=== PATIENT | female | born 1985 | race African-American/Black ===

== ENCOUNTER → 2016-06-01 | Outpatient (CLI) | payer OTHER ==
[~2016-06-01] MED LIST: CEPHALEXIN500 M1 PO; DIFLUCAN PO; DIFLUCAN150 MG PO; HUMALOG100 U/ML SC; INDERAL; INSULIN SYRING1 EA10 SQ; KLONOPIN 1MG1 MG PO; LANCETS MC; LEVEMIR100 U/ML SQ; METRONIDAZOLE500 MG PO; NOVOLIN 70/30 710 ML SQ; NOVOLOG FLEX100 U/ML SQ; PEPCID 20MG TAB20 MG PO; PERCOCET 325 MG1 TAB PO; RELION VEN0.09 MG/Ac IH; TESSALON P100 MG/CAP PO; TUSS PO; ZANTAC 150MG T150 MG PO; ZITHROMAX 250M250 MG PO; ZITHROMAX Z PA250 MG PO
== END ==
LOC: SUN.DIA 05-12 15:55
DX: E10.65 Type 1 diabetes mellitus with hyperglycemia (principal); Z79.4 Long term (current) use of insulin; Z68.31 Body mass index [BMI] 31.0-31.9, adult; Z71.3 Dietary counseling and surveillance; I10 Essential (primary) hypertension; E88.81 Metabolic syndrome and other insulin resistance
CPT/HCPCS: G0108

== ENCOUNTER 2016-10-11 09:11 | Inpatient (IN) | payer OTHER ==
[~2016-10-11] VITALS: Ht 160 cm; Wt 78.2 kg
[2016-10-11] VITALS (86 sets, daily range): BP systolic 104–128; BP diastolic 82–90; PULSE 88–97; TEMP 97.8–99.1; O2SAT 73–100
[~2016-10-11 09:11] MED LIST changes: -INSULIN SYRING1 EA10 SQ; -KLONOPIN 1MG1 MG PO; -LANCETS MC; -NOVOLIN 70/30 710 ML SQ; -PEPCID 20MG TAB20 MG PO; -PERCOCET 325 MG1 TAB PO; -ZANTAC 150MG T150 MG PO
[2016-10-11 09:55] LABS: BASO % 0.4 % (0.0-2.0); EOS # 0.1 (0.0-0.7); EOS % 0.7 % (0-4.0); GRAN # 4.3 (1.4-6.5); GRAN % 62.4 % (42.2-75.2); HEMATOCRIT 47.6 % (37.0-47.0); HEMOGLOBIN 15.8 g/dl (12.5-16.0); LYMPH % 28.8 % (20.0-51.0); MEAN CELL VOLUME 88 fl (80.0-100.0); MEAN CORPUSCULAR HEMOGLOBIN 29 pg (27.0-31.0); MEAN CORPUSCULAR HGB CONC 33 g/dl (33.0-37.0); MEAN PLATELET VOLUME 10.7 fl (7.4-10.4); MONO # 0.5 (0.1-0.6); MONO % 7.3 % (1.7-9.3); PLATELET COUNT 209 K/mm3 (130-400); REDCELL DISTRIBUTION WIDTH-CV 13.5 % (11.5-14.5); WHITE BLOOD COUNT 6.9 K/mm3 (4.8-10.8)
[2016-10-11] MEDS ORDERED: KLONOPIN 1MG1 MG PO (10:06)
[2016-10-11 10:07] LABS: ADJUSTED CALCIUM 9.4 mg/dL (8.4-10.2); ALANINE AMINOTRANSFERASE 20 U/L (9-52); ALBUMIN 3.9 gm/dL (3.5-5.0); ALKALINE PHOSPHATASE 86 U/L (50-136); ANION GAP 23 mmol/L (7-16); BILIRUBIN,TOTAL 0.8 mg/dL (0.0-1.0); BLOOD UREA NITROGEN 13 mg/dL (7-17); CALCIUM 9.3 mg/dL (8.4-10.2); CHLORIDE 98 mmol/L (98-107); CREATININE, serum 0.86 mg/dL (0.52-1.25); LIPASE 24 U/L (23-300); POTASSIUM 4.4 mmol/L (3.4-5.0); SODIUM 132 mmol/L (137-145); TOTAL PROTEIN 6.9 gm/dL (6.4-8.2)
[2016-10-11 10:16] LABS: CARBON DIOXIDE 11 mmol/L (22-30); GLUCOSE 466 mg/dL (74-106)
[2016-10-11 10:21] LABS: PH 5 (5-8); SQUAMOUS EPITHELIAL 0-2 /hpf; URINE APPEARANCE Clear; URINE BACTERIA None Seen /hpf; URINE BILIRUBIN Negative (NEGATIVE); URINE BLOOD 1+ (NEGATIVE); URINE COLOR Yellow; URINE GLUCOSE 3+ (NEGATIVE); URINE KETONE 2+ (NEGATIVE); URINE RBC 0-2 /hpf; URINE UROBILINOGEN Negative (NEGATIVE); URINE WBC 0-2 /hpf
[2016-10-11 18:32] LABS: CREATININE, serum 0.59 mg/dL (0.52-1.25); POTASSIUM 3.6 mmol/L (3.4-5.0)
[2016-10-11] MEDS ORDERED: PERCOCET 325 MG1 TAB PO (18:53)
[2016-10-11 22:00] LABS: THYROID STIMULATING HORMONE 2.25 uIU/mL (0.465-4.680)
[2016-10-11 22:07] LABS: CALCIUM 8.4 mg/dL (8.4-10.2); CREATININE, serum 0.82 mg/dL (0.52-1.25); POTASSIUM 3.4 mmol/L (3.4-5.0)
[2016-10-12] VITALS: BP 94/64; PULSE 85; TEMP 98.1
[2016-10-12 04:00] VITALS: PULSE 86; TEMP 97.8
[2016-10-12 06:39] LABS: BASO % 0.4 % (0.0-2.0); EOS # 0.1 (0.0-0.7); EOS % 1.6 % (0-4.0); GRAN # 2.2 (1.4-6.5); GRAN % 40.7 % (42.2-75.2); HEMATOCRIT 41.5 % (37.0-47.0); LYMPH # 2.7 (1.2-3.4); LYMPH % 49.1 % (20.0-51.0); MEAN CELL VOLUME 89 fl (80.0-100.0); MEAN CORPUSCULAR HEMOGLOBIN 29 pg (27.0-31.0); MEAN CORPUSCULAR HGB CONC 33 g/dl (33.0-37.0); MEAN PLATELET VOLUME 10.3 fl (7.4-10.4); MONO # 0.4 (0.1-0.6); PLATELET COUNT 167 K/mm3 (130-400); RED BLOOD COUNT 4.68 M/mm3 (4.10-5.30); REDCELL DISTRIBUTION WIDTH-CV 13.8 % (11.5-14.5); WHITE BLOOD COUNT 5.5 K/mm3 (4.8-10.8)
[2016-10-12 06:44] LABS: HEMOGLOBIN 13.6 g/dl (12.5-16.0)
[2016-10-12 06:49] LABS: CALCIUM 8.4 mg/dL (8.4-10.2); CREATININE, serum 0.73 mg/dL (0.52-1.25); POTASSIUM 3.6 mmol/L (3.4-5.0)
[2016-10-12 08:00] VITALS: BP 112/80; PULSE 81
[2016-10-12] MEDS ORDERED: ZANTAC 150MG T150 MG PO (11:54)
[2016-10-12] MEDS ORDERED: PEPCID 20MG TAB20 MG PO (11:55)
[2016-10-12] MEDS ORDERED: NOVOLIN 70/30 710 ML SQ (11:56)
[2016-10-12] MEDS ORDERED: LANCETS MC (11:57)
[2016-10-12] MEDS ORDERED: INSULIN SYRING1 EA10 SQ (12:04)
[2016-10-12 12:25] VITALS: BP 115/82; PULSE 79
== END 2016-10-12 16:53 | disposition home or self-care (01) | DRG 639 ==
LOC: COL.ER 09:11 → IMCU 10:26
PROVIDERS: Emergency Medicine; Family Medicine
DX: E10.10 Type 1 diabetes mellitus with ketoacidosis without coma (principal); E05.00 Thyrotoxicosis with diffuse goiter without thyrotoxic crisis or storm; R33.0 Drug induced retention of urine; T45.0X5A Adverse effect of antiallergic and antiemetic drugs, initial encounter; K21.9 Gastro-esophageal reflux disease without esophagitis; N92.0 Excessive and frequent menstruation with regular cycle; F41.9 Anxiety disorder, unspecified; F17.210 Nicotine dependence, cigarettes, uncomplicated
CPT/HCPCS: 99223-AI; 99239; C9113; J1170; J1200; J1815; J1885; J2270; J2405; J7030; J7040; J7070

== ENCOUNTER → 2017-07-26 | Outpatient (CLI) | payer OTHER ==
[~2017-07-26] MED LIST changes: +INSULIN SYRING1 EA10 SQ; +KLONOPIN 1MG1 MG PO; +LANCETS MC; +NOVOLIN 70/30 710 ML SQ; +PEPCID 20MG TAB20 MG PO; +PERCOCET 325 MG1 TAB PO; +ZANTAC 150MG T150 MG PO
== END ==
LOC: SUN.DIA 08-03 14:01
DX: E10.9 Type 1 diabetes mellitus without complications (principal); Z79.4 Long term (current) use of insulin; I10 Essential (primary) hypertension; Z68.26 Body mass index [BMI] 26.0-26.9, adult; Z71.3 Dietary counseling and surveillance; F17.210 Nicotine dependence, cigarettes, uncomplicated
CPT/HCPCS: G0108

== ENCOUNTER 2017-12-12 02:52 | Emergency (ER) | payer OTHER ==
[~2017-12-12] VITALS: Ht 160 cm; Wt 70.0 kg
[2017-12-12 02:57] VITALS: TEMP 98.7
[2017-12-12] MEDS ORDERED: ADDERALL20 MG PO (03:08)
[2017-12-12 04:08] LABS: BASO % 0.4 % (0.0-2.0); EOS % 0.5 % (0-4.0); GRAN # 5.4 (1.4-6.5); GRAN % 71.3 % (42.2-75.2); HEMOGLOBIN 11.2 g/dl (12.5-16.0); LYMPH # 1.2 (1.2-3.4); LYMPH % 15.7 % (20.0-51.0); MEAN CELL VOLUME 89 fl (80.0-100.0); MEAN CORPUSCULAR HEMOGLOBIN 29 pg (27.0-31.0); MEAN CORPUSCULAR HGB CONC 33 g/dl (33.0-37.0); MEAN PLATELET VOLUME 9.8 fl (7.4-10.4); MONO # 0.9 (0.1-0.6); MONO % 11.8 % (1.7-9.3); PLATELET COUNT 205 K/mm3 (130-400); RED BLOOD COUNT 3.81 M/mm3 (4.10-5.30)
[2017-12-12 04:10] LABS: HEMATOCRIT 33.8 % (37.0-47.0)
[2017-12-12 04:18] LABS: ALBUMIN 3.1 gm/dL (3.5-5.0); BILIRUBIN,TOTAL 0.1 mg/dL (0.0-1.0); CALCIUM 8.2 mg/dL (8.4-10.2); CREATININE, serum 0.47 mg/dL (0.52-1.25); TOTAL PROTEIN 5.8 gm/dL (6.4-8.2)
[2017-12-12 04:20] LABS: POTASSIUM 2.9 mmol/L (3.4-5.0)
[2017-12-12] MEDS ORDERED: ZITHROMAX Z PA250 MG PO (04:37)
[2017-12-12 05:16] LABS: TROPONIN-I < 0.012 ng/mL (0.000-0.034)
[2017-12-12 05:30] LABS: COLLECTION METHOD CLEAN CATCH
[2017-12-12 05:36] LABS: MUCOUS Present /lpf; PH 6 (5-8); SQUAMOUS EPITHELIAL 0-2 /hpf; URINE APPEARANCE Clear; URINE BACTERIA Rare /hpf; URINE BILIRUBIN Negative (NEGATIVE); URINE BLOOD Negative (NEGATIVE); URINE COLOR Straw; URINE GLUCOSE 3+ (NEGATIVE); URINE KETONE Negative (NEGATIVE); URINE LEUKOCYTE ESTERASE Negative (NEGATIVE); URINE NITRATE Negative (NEGATIVE); URINE PROTEIN(semi-quant) 1+ (NEGATIVE); URINE RBC 0-2 /hpf; URINE UROBILINOGEN Negative (NEGATIVE)
[2017-12-12] MEDS ORDERED: LASIX 20MG TABL20 MG PO (05:46)
[2017-12-12] MEDS ORDERED: NORCO 325 MG-51 TAB PO (05:52)
[2017-12-12 05:58] VITALS: BP 128/70; PULSE 96
== END 2017-12-12 05:59 | disposition home or self-care (01) ==
LOC: COL.ER 02:52
PROVIDERS: Emergency Medicine
DX: J18.1 Lobar pneumonia, unspecified organism (principal); E87.6 Hypokalemia; E05.00 Thyrotoxicosis with diffuse goiter without thyrotoxic crisis or storm; F17.210 Nicotine dependence, cigarettes, uncomplicated; E10.9 Type 1 diabetes mellitus without complications; Z79.4 Long term (current) use of insulin; Z98.51 Tubal ligation status; Z98.890 Other specified postprocedural states
CPT/HCPCS: J0696; J7030

== ENCOUNTER 2018-07-30 08:37 | Emergency (ER) | payer OTHER ==
[~2018-07-30] VITALS: Ht 160 cm; Wt 63.6 kg
[~2018-07-30 08:37] MED LIST changes: +ADDERALL20 MG PO; +LASIX 20MG TABL20 MG PO; +NORCO 325 MG-51 TAB PO
[2018-07-30 08:45] VITALS: TEMP 97.9
[2018-07-30] MEDS ORDERED: FLEXERIL 1010 MG/TAB PO (09:55)
[2018-07-30 10:07] VITALS: BP 124/84; PULSE 108
== END 2018-07-30 10:10 | disposition home or self-care (01) ==
LOC: COL.ER 08:37
DX: S09.90XA Unspecified injury of head, initial encounter (principal); S16.1XXA Strain of muscle, fascia and tendon at neck level, initial encounter; S00.93XA Contusion of unspecified part of head, initial encounter; E10.9 Type 1 diabetes mellitus without complications; F17.210 Nicotine dependence, cigarettes, uncomplicated; Z98.51 Tubal ligation status; Z98.890 Other specified postprocedural states; V49.9XXA Car occupant (driver) (passenger) injured in unspecified traffic accident, initial encounter